=== PATIENT | female | born 1990 | race African-American/Black ===

== ENCOUNTER 2017-06-21 13:59 | Emergency (ER) | payer OTHER ==
[2017-06-21 14:29] LABS: #Eosinphils 0.1 thou/uL (0.0-0.7); #Lymphocytes 1.4 thou/uL (1.20-3.40); #Monocytes 0.4 thou/uL (0.11-0.59); #Neutrophils 2.1 thou/uL (1.40-6.50); %Basophils 0.5 % (0.0-1.0); %Eosinophils 1.5 % (0.0-10.0); %Lymphocytes 34.6 % (21.0-51.0); Hematocrit 36.4 % (36.0-47.0); Mean Platelet Volume 10.6 fL (7.4-10.4); Red Blood Cell (RBC) Count 4.11 mill/uL (4.20-5.40)
[2017-06-21 14:38] LABS: Bilirubin Negative (Negative); Blood, Urine Negative (Negative); Glucose, Urine (Dipstick) Negative (Negative); Ketone, Urine Negative (Negative); Nitrite Negative (Negative); Protein, Urine (Dipstick) Negative (Neg-Trace); Urobilinogen 0.2 mg/dL (0.2-1.0)
[2017-06-21 14:53] LABS: ALT (SGPT) 14 U/L (8-55); AST (SGOT) 20 U/L (5-34); Alkaline Phosphatase 69 U/L (40-150); Anion Gap 13 mmol/L (10-20); BUN (Urea Nitrogen) 8 mg/dL (7.0-18.7); Bilirubin, Total 0.5 mg/dL (0.2-1.2); Calc. Creatinine Clearance 0 mL/min (70-130); Carbon Dioxide 25 mmol/L (22-29); Chloride 104 mmol/L (98-107); Estimated GFR-MDRD 76; Globulin 3.5 g/dL (2.4-3.5); Lipase 8 U/L (8-78); Protein, Total 7.6 g/dL (6.0-8.3)
[2017-06-21] MEDS ORDERED: methylPREDNISolone Sod Succ/PF 125 MG/2 ML VIAL ONE (15:11)
[2017-06-21] MEDS ORDERED: Ketorolac Tromethamine 30 MG/ML VIAL ONE (15:11)
[2017-06-21] MEDS ORDERED: Sterile Water 10 ML ONE (15:11)
== END 2017-06-21 15:40 | disposition home or self-care (01) ==
LOC: ERS 13:59
DX: M62.830 Muscle spasm of back (principal); R10.9 Unspecified abdominal pain; F32.9 Major depressive disorder, single episode, unspecified
CPT/HCPCS: 36415; 80053; 81003; 81025; 83690; 85025; 96372; A4216; J1885; J2930

== ENCOUNTER 2017-07-05 12:12 | Emergency (ER) | payer OTHER, SELFPAY ==
[2017-07-05 12:46] LABS: #Eosinphils 0.1 thou/uL (0.0-0.7); #Lymphocytes 1.7 thou/uL (1.20-3.40); #Monocytes 0.4 thou/uL (0.11-0.59); #Neutrophils 2.4 thou/uL (1.40-6.50); %Basophils 0.1 % (0.0-1.0); %Eosinophils 1.4 % (0.0-10.0); %Lymphocytes 37.7 % (21.0-51.0); Hematocrit 37.6 % (36.0-47.0); Mean Platelet Volume 10.6 fL (7.4-10.4); Red Blood Cell (RBC) Count 4.27 mill/uL (4.20-5.40); White Blood Cell (WBC) Count 4.6 thou/uL (4.8-10.8)
[2017-07-05 12:51] LABS: Bilirubin Negative (Negative); Blood, Urine Negative (Negative); Glucose, Urine (Dipstick) Negative (Negative); Ketone, Urine Negative (Negative); Nitrite Negative (Negative); Protein, Urine (Dipstick) Negative (Neg-Trace); Urobilinogen 0.2 mg/dL (0.2-1.0)
[2017-07-05 12:54] LABS: Bacteria/HPF None Seen HPF (None Seen); Hyaline Casts/LPF 0-3 HYALINE CAST LPF (0-3 Hyaline); RBC/HPF 0-3 HPF (0-3); Squamous Epithelial 0-3 HPF (0-3); WBC/HPF 0-3 HPF (0-3)
[2017-07-05 13:08] LABS: ALT (SGPT) 13 U/L (8-55); AST (SGOT) 17 U/L (5-34); Alkaline Phosphatase 66 U/L (40-150); Anion Gap 12 mmol/L (10-20); BUN (Urea Nitrogen) 10 mg/dL (7.0-18.7); Bilirubin, Total 0.8 mg/dL (0.2-1.2); Calc. Creatinine Clearance 0 mL/min (70-130); Calcium 9.9 mg/dL (7.8-10.44); Carbon Dioxide 25 mmol/L (22-29); Chloride 105 mmol/L (98-107); Estimated GFR-MDRD 78; Globulin 3.9 g/dL (2.4-3.5)
== END 2017-07-05 14:20 | disposition home or self-care (01) ==
LOC: ERS 12:12
DX: R10.30 Lower abdominal pain, unspecified (principal); I10 Essential (primary) hypertension; F32.9 Major depressive disorder, single episode, unspecified
CPT/HCPCS: 80053; 81003; 81015; 81025; 83690; 84702; 85025; 87086; 99284

== ENCOUNTER 2017-11-21 13:33 | Emergency (ER) | payer OTHER, SELFPAY ==
[2017-11-21] MEDS ORDERED: methylPREDNISolone Sod Succ/PF 125 MG/2 ML VIAL ONE (13:46)
[2017-11-21] MEDS ORDERED: Magnesium Sulfate 2 GM/100 ML BAG ONE (13:47)
[2017-11-21 13:57] LABS: #Eosinphils 0.1 thou/uL (0.0-0.7); #Lymphocytes 2.1 thou/uL (1.20-3.40); #Monocytes 0.5 thou/uL (0.11-0.59); #Neutrophils 3.8 thou/uL (1.40-6.50); %Basophils 0.6 % (0.0-1.0); %Eosinophils 1.4 % (0.0-10.0); %Lymphocytes 32.5 % (21.0-51.0); %Monocytes 7.3 % (0.0-10.0); %Neutrophils 58.2 % (42.0-75.0); Hemoglobin 12.9 g/dL (12.0-16.0); Mean Corpuscular HGB CONC 33.5 g/dL (32.0-36.0); Mean Corpuscular Hemoglobin 28.5 pg (27.0-31.0); Mean Corpuscular Volume 85.1 fl (81.0-99.0); Mean Platelet Volume 10.5 fL (7.4-10.4); Platelet Count 212 thou/uL (130-400); RBC Distribution Width 13.9 % (11.5-14.5); Red Blood Cell (RBC) Count 4.54 mill/uL (4.20-5.40); White Blood Cell (WBC) Count 6.6 thou/uL (4.8-10.8)
[2017-11-21 14:21] LABS: ALT (SGPT) 12 U/L (8-55); AST (SGOT) 24 U/L (5-34); Albumin 4.4 g/dL (3.5-5.0); Alkaline Phosphatase 86 U/L (40-150); Anion Gap 16 mmol/L (10-20); BUN (Urea Nitrogen) 11 mg/dL (7.0-18.7); Bilirubin, Total 0.6 mg/dL (0.2-1.2); CK (CPK) 89 U/L (29-168); Calc. Creatinine Clearance 0 mL/min (70-130); Carbon Dioxide 21 mmol/L (22-29); Chloride 107 mmol/L (98-107); Estimated GFR-MDRD 73; Globulin 4.4 g/dL (2.4-3.5); Glucose 98 mg/dL (70-105); Potassium 4.1 mmol/L (3.5-5.1); Protein, Total 8.8 g/dL (6.0-8.3); Sodium 140 mmol/L (136-145)
[2017-11-21 14:27] LABS: Troponin I Less than 0.010 ng/mL (< 0.028)
--- NOTE | 2017-11-21 14:41 | RAD ---
CHEST 1 VIEW: HISTORY: Dyspnea. COMPARISON: 03/02/17. FINDINGS: Cardiac silhouette is magnified by projection. Pulmonary vasculature is slightly engorged. Mediasti num is midline. No lobar consolidation or evidence of pneumothorax. shredder tender peat leads overlie t he chest. IMPRESSION: Mild pulmonary vascular congestion. POS: [facility]
[2017-11-21 14:47] LABS: ALV-art Gradient 48.515 (0-20); Actual Bicarbonate (HCO3a) 21.2 mEq/L (22-26); Analyzer IN Cardio ER; Base Excess (BEa) -3.6 mEq/L (0 (+/-) 2.5); CO2 Tension 37.3 mmHg (35.0-45.0); Calcium, Ionized 1.2 mmol/L (1.12-1.30); Hematocrit-ABG 34.4 % (36.0-47.0); Hemoglobin (Hb) 10.6 g/dL (12.0-16.0); O2 Tension (PaO2) 103.1 mmHg (80.0-100.0); Puncture Site RRA; pH, Arterial 7.37 (7.35-7.45)
--- NOTE | 2017-11-23 17:35 | EKG ---
Test Reason : SOB Blood Pressure : / mmHG Vent. Rate : 118 BPM Atrial Rate : 118 BPM P-R Int : 142 ms QRS Dur : 066 ms QT Int : 324 ms P-R-T Axes : 057 040 054 degrees QTc Int : 454 ms Sinus tachycardia Right atrial enlargement Borderline ECG Confirmed by GAUDENCIO BRAND, FRANKLIN ([id number]), publication editor YOGESH LATHAM ([id number]) on 11/23/2017 5:33:52 PM Referred By: GAUDENCIO Confirmed By:FRANKLIN RATLIFF MD
== END 2017-11-21 15:38 | disposition home or self-care (01) ==
LOC: ERS 13:33
DX: J45.901 Unspecified asthma with (acute) exacerbation (principal); F32.9 Major depressive disorder, single episode, unspecified
CPT/HCPCS: 71045; 80053; 82553; 82805; 84484; 85025; 93005; 94640; 96365; 96375; J2930; J3475; J7620

== ENCOUNTER 2017-12-10 15:22 | Emergency (ER) | payer SELFPAY ==
[2017-12-10 16:35] LABS: Bilirubin Negative (Negative); Blood, Urine Negative (Negative); Clarity CLEAR (Clear); Glucose, Urine (Dipstick) Negative (Negative); Leukocyte Trace (Negative); Nitrite Negative (Negative); Protein, Urine (Dipstick) Negative (Neg-Trace); Specific Gravity, Urine 1.022 (1.002-1.036); pH, Urine 5.5 (5.0-9.0)
[2017-12-10 16:37] LABS: Bacteria/HPF None Seen HPF (None Seen); Hyaline Casts/LPF 0-3 HYALINE CAST LPF (0-3 Hyaline); Pathc Cast-AUWi Flag 0.43 (0-2.49); RBC/HPF 0-3 HPF (0-3); Squamous Epithelial 0-3 HPF (0-3); WBC/HPF 0-3 HPF (0-3)
[2017-12-10 16:39] LABS: Pregnancy Test - Urine (BHCG) Negative (Negative); Pregu Control Background? CLEAR/WHITE (CLR/WHITE); Pregu Control Bar Appear? YES (CONTROL BAR); Specific Gravity 1.022 (1.002-1.036)
== END 2017-12-10 18:09 | disposition left against medical advice (07) ==
LOC: ERS 15:22
DX: Z53.21 Procedure and treatment not carried out due to patient leaving prior to being seen by health care provider (principal)
CPT/HCPCS: 81003; 81015; 81025

== ENCOUNTER 2018-01-11 05:34 | Emergency (ER) | payer SELFPAY ==
[2018-01-11] MEDS ORDERED: HYDROcodone/Acetaminophen 5/325 mg Tablet ONE (06:02)
--- NOTE | 2018-01-11 07:58 | RAD ---
RIGHT FORELEG RADIOGRAPHS 2 VIEWS: DATE: 01/11/18. PROVIDED CLINICAL HISTORY: Foreleg pain status post injury. FINDINGS: There is no evidence for a fracture or other acute osseous abnormality. If there is persistent clini param concern, conservative management and followup imaging are advised. IMPRESSION: As above. POS: [facility]
--- NOTE | 2018-01-11 08:02 | RAD ---
RIGHT KNEE RADIOGRAPHS 4 VIEWS: DATE: 01/11/18. PROVIDED CLINICAL HISTORY: Knee pain status post injury. FINDINGS: No evidence for a fracture or other acute osseous abnormality. If there is persistent clinical samir rn, conservative management and followup imaging are advised. IMPRESSION: As above. POS: [facility]
== END 2018-01-11 06:51 | disposition home or self-care (01) ==
LOC: ERS 05:34
DX: S89.91XA Unspecified injury of right lower leg, initial encounter (principal); I10 Essential (primary) hypertension; J45.909 Unspecified asthma, uncomplicated; F32.9 Major depressive disorder, single episode, unspecified; Z79.899 Other long term (current) drug therapy; W01.0XXA Fall on same level from slipping, tripping and stumbling without subsequent striking against object, initial encounter

== ENCOUNTER 2018-06-13 16:50 | Emergency (ER) | payer SELFPAY ==
[~2018-06-13 16:50] MED LIST: ISOVUE-370 76%-LOCM 1 ML ONE
[2018-06-13 17:21] LABS: Bilirubin Negative (Negative); Blood, Urine Negative (Negative); Clarity CLEAR (Clear); Glucose, Urine (Dipstick) Negative (Negative); Leukocyte Small (Negative); Nitrite Negative (Negative); Protein, Urine (Dipstick) Negative (Neg-Trace); Specific Gravity, Urine 1.013 (1.002-1.036)
[2018-06-13 17:22] LABS: Pregnancy Test - Urine (BHCG) Negative (Negative); Pregu Control Background? CLEAR/WHITE (CLR/WHITE); Pregu Control Bar Appear? YES (CONTROL BAR); Specific Gravity 1.013 (1.002-1.036)
[2018-06-13 17:23] LABS: Bacteria/HPF None Seen HPF (None Seen); Hyaline Casts/LPF 0-3 HYALINE CAST LPF (0-3 Hyaline); Pathc Cast-AUWi Flag 0.29 (0-2.49); RBC/HPF 0-3 HPF (0-3); Squamous Epithelial 0-3 HPF (0-3)
[2018-06-13 18:03] LABS: #Basophils 0.1 thou/uL (0.0-0.2); #Lymphocytes 2.1 thou/uL (1.20-3.40); #Monocytes 0.3 thou/uL (0.11-0.59); #Neutrophils 2.7 thou/uL (1.40-6.50); %Basophils 1.1 % (0.0-1.0); %Eosinophils 0.7 % (0.0-10.0); %Lymphocytes 40.7 % (21.0-51.0); %Monocytes 6.5 % (0.0-10.0); %Neutrophils 50.9 % (42.0-75.0); Hemoglobin 12.2 g/dL (12.0-16.0); Mean Corpuscular HGB CONC 32.5 g/dL (32.0-36.0); Mean Corpuscular Volume 86.3 fL (78.0-98.0); Mean Platelet Volume 10.9 fL (7.4-10.4); Platelet Count 196 thou/uL (130-400); RBC Distribution Width 13.3 % (11.5-14.5); Red Blood Cell (RBC) Count 4.36 mill/uL (4.20-5.40); White Blood Cell (WBC) Count 5.2 thou/uL (4.8-10.8)
[2018-06-13 18:25] LABS: ALT (SGPT) 11 U/L (8-55); AST (SGOT) 20 U/L (5-34); Albumin 4.3 g/dL (3.5-5.0); Alkaline Phosphatase 83 U/L (40-150); Anion Gap 11 mmol/L (10-20); BUN (Urea Nitrogen) 13 mg/dL (7.0-18.7); Bilirubin, Total 0.5 mg/dL (0.2-1.2); Calc. Creatinine Clearance 0 mL/min (70-130); Calcium 10.1 mg/dL (7.8-10.44); Carbon Dioxide 24 mmol/L (22-29); Chloride 105 mmol/L (98-107); Estimated GFR-MDRD 70; Globulin 3.9 g/dL (2.4-3.5); Glucose 69 mg/dL (70-105); Potassium 3.9 mmol/L (3.5-5.1); Protein, Total 8.2 g/dL (6.0-8.3); Sodium 136 mmol/L (136-145)
[2018-06-13 18:39] LABS: Magnesium 1.8 mg/dL (1.6-2.6)
[2018-06-13] MEDS ORDERED: Ketorolac Tromethamine 30 MG/ML VIAL ONE (19:19)
[2018-06-13 20:09] LABS: Bilirubin Negative (Negative); Blood, Urine Negative (Negative); Clarity CLEAR (Clear); Glucose, Urine (Dipstick) Negative (Negative); Leukocyte Small (Negative); Nitrite Negative (Negative); Protein, Urine (Dipstick) Negative (Neg-Trace); Specific Gravity, Urine 1.012 (1.002-1.036)
[2018-06-13 20:11] LABS: Bacteria/HPF None Seen HPF (None Seen); Hyaline Casts/LPF 0-3 HYALINE CAST LPF (0-3 Hyaline); Pathc Cast-AUWi Flag 0.14 (0-2.49); RBC/HPF 0-3 HPF (0-3); Squamous Epithelial 0-3 HPF (0-3)
[2018-06-13] MEDS ORDERED: Azithromycin 250 MG TAB ONE (20:29)
[2018-06-13] MEDS ORDERED: cefTRIAXone\\ROCEPHIN 250 MG VIAL ONE (20:29)
--- NOTE | 2018-06-13 21:37 | CT ---
CT ABDOMEN WITH CONTRAST CT PELVIS WITH CONTRAST: 06/13/18 HISTORY: 27-year-old female with lower abdominal pain. TECHNIQUE: IV injection of iodinated contrast media: Isovue Oral contrast media: Not administered. FINDINGS: Liver: No focal solid mass. Spleen: No splenomegaly. Pancreas: No mass or surrounding fat stranding. Adrenals: No mass. Kidneys: No hydronephrosis or enhancement abnormalities. Ureters: No dilation. Bladder: No pathology identified. Abdominal aorta: No aneurysm. Small bowel: No dilation. Colon: No adjacent fat stranding. Appendix: No dilation or adjacent fat stranding. Free air: None. Free fluid: None. IMPRESSION: No major pathology identified. andre [] POS: [facility]
[2018-06-16 22:10] LABS: Chlamydia by PCR Not Detected (NotDetected); GC by PCR Not Detected (NotDetected)
== END 2018-06-13 21:23 | disposition home or self-care (01) ==
LOC: ERS 16:50
DX: A59.01 Trichomonal vulvovaginitis (principal); N72 Inflammatory disease of cervix uteri; I10 Essential (primary) hypertension
CPT/HCPCS: 36415; 74177; 80053; 81003; 81015; 81025; 83690; 83735; 85025; 87086; 87480; 87491; 87510; 87591; 87660; 96374; 96375; J0696; J1885; J2270

== ENCOUNTER 2018-11-26 16:20 | Emergency (ER) | payer OTHER, SELFPAY ==
[2018-11-26] MEDS ORDERED: Albuterol Sulfate 2.5 mg/3 ml Neb ONE (17:09)
--- NOTE | 2018-11-26 18:00 | RAD ---
AP VIEW CHEST: 11/26/18 HISTORY: Exacerbation asthma. AP view chest is obtained on 11/26/18. Comparison made to previous exam from 11/21/17. AP view chest demonstrates the lungs to be well aerated. No evidence of active intrathoracic disease seen. No evidence of effusion, pneumonia or pneumothorax seen. IMPRESSION: Unremarkable AP view chest. POS: [facility]
== END 2018-11-26 18:43 | disposition home or self-care (01) ==
LOC: ERS 16:20
DX: J45.901 Unspecified asthma with (acute) exacerbation (principal); I10 Essential (primary) hypertension; F41.9 Anxiety disorder, unspecified; F43.10 Post-traumatic stress disorder, unspecified; F32.9 Major depressive disorder, single episode, unspecified; Z79.899 Other long term (current) drug therapy
CPT/HCPCS: 71045; 94640; J7611

== ENCOUNTER 2019-03-02 18:09 | Emergency (ER) | payer OTHER ==
--- NOTE | 2019-03-02 19:06 | RAD ---
PORTABLE CHEST: 03/02/19 HISTORY: Asthma attack. COMPARISON: 11/26/18 study. Heart size and mediastinum are within normal limits. The lungs are clear of infiltrates. No signific ant bony findings. IMPRESSION: No active intrathoracic disease. POS: [facility]
== END 2019-03-02 19:11 | disposition home or self-care (01) ==
LOC: ERS 18:09
DX: J45.901 Unspecified asthma with (acute) exacerbation (principal); I10 Essential (primary) hypertension; F41.9 Anxiety disorder, unspecified; F43.10 Post-traumatic stress disorder, unspecified
CPT/HCPCS: 71045

== ENCOUNTER 2019-10-07 12:15 | Emergency (ER) | payer OTHER ==
--- NOTE | 2019-10-07 13:43 | RAD ---
CHEST TWO VIEWS: HISTORY: Cough. Sore throat. Dyspnea. COMPARISON: 03/02/2019 FINDINGS: The cardiac silhouette and pulmonary vasculature are unremarkable. The mediastinum is midline. No con fluent air space consolidation, pneumothorax, or pleural fluid. IMPRESSION: No active cardiopulmonary abnormalities are demonstrated. POS: [facility]
[2019-10-07] MEDS ORDERED: predniSONE 20 MG TAB ONE (13:54)
== END 2019-10-07 15:07 | disposition home or self-care (01) ==
LOC: ERS 12:15
DX: J45.901 Unspecified asthma with (acute) exacerbation (principal); J11.1 Influenza due to unidentified influenza virus with other respiratory manifestations; I10 Essential (primary) hypertension; F43.10 Post-traumatic stress disorder, unspecified; F41.9 Anxiety disorder, unspecified; F32.9 Major depressive disorder, single episode, unspecified
CPT/HCPCS: 71046; 94640; J7512; J7620

== ENCOUNTER 2020-12-30 07:54 | Emergency (ER) | payer OTHER ==
[2020-12-30] MEDS ORDERED: Ibuprofen 200 MG TAB ONE (08:15)
[2020-12-30] MEDS ORDERED: Ondansetron PF 4 MG/2 ML Vial ONE (08:15)
[2020-12-30] MEDS ORDERED: Magnesium 2 GM/50 ML BAG (IN WATER) ONE (08:15)
[2020-12-30] MEDS ORDERED: Albuterol 200 PUFF (6.7GM INHALER) ONE (09:04)
== END 2020-12-30 11:15 | disposition home or self-care (01) ==
LOC: ERS 07:54
DX: U07.1 COVID-19 (principal); J45.901 Unspecified asthma with (acute) exacerbation; I10 Essential (primary) hypertension; Z79.51 Long term (current) use of inhaled steroids; Z79.899 Other long term (current) drug therapy
CPT/HCPCS: 71045; 93005; 96365; J2405; J3475

== ENCOUNTER 2021-01-25 08:29 | Emergency (ER) | payer OTHER ==
[2021-01-25] MEDS ORDERED: Ketorolac Tromethamine 30 MG/ML VIAL ONE (12:29)
== END 2021-01-25 13:00 | disposition home or self-care (01) ==
LOC: ERS 08:29
DX: S63.094A Other dislocation of right wrist and hand, initial encounter (principal); I10 Essential (primary) hypertension; J45.909 Unspecified asthma, uncomplicated; V87.8XXA Person injured in other specified noncollision transport accidents involving motor vehicle (traffic), initial encounter
CPT/HCPCS: 25690; 96372; J1885

== ENCOUNTER 2022-01-07 11:27 | Emergency (ER) | payer OTHER | END 2022-01-07 12:29 | disposition home or self-care (01) | LOC: ERS 11:27 | DX: F41.9 Anxiety disorder, unspecified (principal); F43.20 Adjustment disorder, unspecified; I10 Essential (primary) hypertension; J45.909 Unspecified asthma, uncomplicated; F17.290 Nicotine dependence, other tobacco product, uncomplicated; Z79.899 Other long term (current) drug therapy; F32.A Depression, unspecified; F43.10 Post-traumatic stress disorder, unspecified | CPT/HCPCS: 93005 ==

== ENCOUNTER 2023-06-29 13:30 | Emergency (ER) | payer OTHER ==
[2023-06-29] MEDS ORDERED: methylPREDNISolone Sod Succ/PF 125 MG/2 ML VIAL ONE (13:43)
[2023-06-29] MEDS ORDERED: Magnesium 2 GM/50 ML BAG (IN WATER) ONE (13:43)
== END 2023-06-29 16:05 | disposition home or self-care (01) ==
LOC: ERS 13:30
DX: J45.901 Unspecified asthma with (acute) exacerbation (principal); I10 Essential (primary) hypertension; Z79.899 Other long term (current) drug therapy
CPT/HCPCS: 71045; 96365; 96375; J2930; J3475

== ENCOUNTER 2024-06-29 20:15 | Emergency (ER) | payer BC, OTHER ==
[2024-06-29] MEDS ORDERED: Ipratropium/Albuterol 3 ML NEB ONE (20:20)
[2024-06-29] MEDS ORDERED: Albuterol 2.5 MG (3 mL) NEB ONE (20:20)
[2024-06-29] MEDS ORDERED: Magnesium 2 GM/50 ML BAG (IN WATER) ONE (20:27)
[2024-06-29] MEDS ORDERED: methylPREDNISolone Sod Succ/PF 125 MG/2 ML VIAL ONE (20:27)
[2024-06-29] MEDS ORDERED: Racepinephrine 2.25% 0.5 ML NEB ONE (20:33)
== END 2024-06-29 23:09 | disposition home or self-care (01) ==
LOC: ERS 20:15
DX: J45.901 Unspecified asthma with (acute) exacerbation (principal); I10 Essential (primary) hypertension; Z55.6 Problems related to health literacy
CPT/HCPCS: 71045; 93005; 94640; 96374; 96375; J2919; J3475; J7611; J7620

== ENCOUNTER 2024-08-25 09:55 | Emergency (ER) | payer BC ==
[2024-08-25 11:15] LABS: Bacteria/HPF None Seen HPF (None Seen); Bilirubin Negative (Negative); Blood, Urine Negative (Negative); CAUTI Indications for Culture Dysuria,urgency,freq; Clarity Clear (Clear); Glucose, Urine (Dipstick) Normal (Negative); Ketone, Urine Negative (Negative); Leukocyte Negative Leu/uL (Negative); Nitrite Negative (Negative); Protein, Urine (Dipstick) Negative (Neg-Trace); RBC/HPF 0-3 HPF (0-3); Specific Gravity, Urine 1.013 (1.002-1.036); Squamous Epithelial 0-3 HPF (0-3); Urobilinogen Normal mg/dL (Less than 2); WBC/HPF 0-3 HPF (0-3)
[2024-08-25 11:19] LABS: Pregnancy Test - Urine (BHCG) Negative (Negative); Pregu Control Background? CLEAR/WHITE (CLR/WHITE); Pregu Control Bar Appear? YES (CONTROL BAR); Specific Gravity 1.013 (1.002-1.036); Urine Culture Reflex No No
[2024-08-25 12:11] LABS: BHCG - Serum Negative (NEGATIVE); Pregs Control Background? CLEAR/WHITE (CLR/WHITE); Pregs Control Bar Appear? YES (CONTROL BAR)
== END 2024-08-25 12:56 | disposition home or self-care (01) ==
LOC: ERS 09:55
DX: M54.50 Low back pain, unspecified (principal); I10 Essential (primary) hypertension
CPT/HCPCS: 36415; 81001; 81025; 84703; 99283

== ENCOUNTER 2025-09-08 08:05 | Emergency (ER) | payer BC ==
[2025-09-08] MEDS ORDERED: Dexamethasone 10 MG/ML VIAL ONE (08:13)
[2025-09-08] MEDS ORDERED: Magnesium 2 GM/50 ML BAG (IN WATER) ONE (08:34)
== END 2025-09-08 10:28 | disposition home or self-care (01) ==
LOC: ERS 08:05
DX: J45.901 Unspecified asthma with (acute) exacerbation (principal); I10 Essential (primary) hypertension; Z79.51 Long term (current) use of inhaled steroids
CPT/HCPCS: 87428; 94640; 96365; 96375; J1100; J3475